=== PATIENT | female | born 1970 | race Two or more races ===

== ENCOUNTER 2024-09-27 21:36 | Emergency (ER) | payer SELFPAY ==
[~2024-09-27] VITALS: Ht 154.9 cm; Wt 90.0 kg
[2024-09-27 22:11] VITALS: BP 141/66; PULSE 67; RESP 18; TEMP 98.8; O2SAT 97
[2024-09-27 22:32] LABS: BASOPHILS % (AUTO) 0.8 % (0.0-2.0); EOSINOPHILS % (AUTO) 1.2 % (1.0-6.0); HEMATOCRIT 39.8 % (36-46); HEMOGLOBIN 13.2 g/dL (12.0-16.0); LYMPHOCYTES # (AUTO) 2.2 K/uL (1.0-4.8); LYMPHOCYTES % (AUTO) 41.5 % (22.0-44.0); MEAN CORPUSCULAR HEMOGLOBIN 30.3 pg (26.0-34.0); MEAN CORPUSCULAR HGB CONC 33.2 G/dL (31.0-37.0); MEAN CORPUSCULAR VOLUME 92 fL (80-100); MONOCYTES # (AUTO) 0.3 K/uL (0.1-1.0); MONOCYTES % (AUTO) 6.4 % (2.0-9.0); NEUTROPHILS # (AUTO) 2.7 K/uL (1.8-7.7); NEUTROPHILS % (AUTO) 50.1 % (40.0-70.0); PLATELET COUNT (AUTO) 201 K/uL (150-450); RED BLOOD CELL COUNT(AUTO) 4.35 MIL/uL (4.00-5.20); RED CELL DISTRIBUTION WIDTH 13.1 % (11.5-14.5); WHITE BLOOD COUNT (AUTO) 5.4 K/uL (4.5-11.0)
[2024-09-27 22:42] LABS: ANION GAP 8 mmol/L (8-16); CALCIUM, TOTAL 8.5 mg/dL (8.8-10.5); CARBON DIOXIDE 27 mmol/L (22-29); CHLORIDE 106 mmol/L (98-107); CREATININE 0.91 mg/dL (0.60-1.30); GLOMERULAR FILTR. RATE CALC > 60 mL/min (>60); GLUCOSE,RANDOM 133 mg/dL (70-110); POTASSIUM 3.7 mmol/L (3.5-5.1); SODIUM SERUM 141 mmol/L (136-145); UREA NITROGEN, BLOOD 21 mg/dL (7-18)
[2024-09-27 22:51] LABS: TROPONIN I-HIGH SENSITIVITY 14 ng/L (<51)
[2024-09-27 22:52] LABS: B-TYPE NATRIURETIC PEPTIDE 70 pg/mL (0-100)
[2024-09-28] MEDS: OMEPRAZOLE 20 MG CAPSULE PO ONE (01:39)
[2024-09-28] MEDS: HYDROCODONE/ACETAMINOPHEN 5-325 MG TABLET PO ONE (01:39)
[2024-09-28 01:56] LABS: TROPONIN I-HIGH SENSITIVITY 32 ng/L (<51)
[2024-09-28] MEDS ORDERED: ASPI-1227 PO (02:29)
[2024-09-28] MEDS: ASPIRIN 325 MG TABLET PO ONE (02:33)
[2024-09-28] MEDS ORDERED: METH-659 PO (20:36)
[2024-09-28] MEDS ORDERED: IBUP-1492 PO (20:36)
== END 2024-09-28 02:51 | disposition left against medical advice (07) ==
LOC: EMS 21:39
DX: R07.9 Chest pain, unspecified (principal); R11.10 Vomiting, unspecified; Z88.0 Allergy status to penicillin
CPT/HCPCS: 71045; 80048; 83880; 84484; 85025; 93005; 99285; 36415-L1; 36415-TC

== ENCOUNTER 2024-09-28 13:05 | Emergency (ER) | payer MEDICAID ==
[~2024-09-28] VITALS: Ht 170.2 cm; Wt 90.0 kg
[~2024-09-28 13:05] MED LIST: ASPI-1227 PO
[2024-09-28 13:10] VITALS: TEMP 98.2
[2024-09-28 15:56] LABS: BASOPHILS % (AUTO) 0.2 % (0.0-2.0); EOSINOPHILS % (AUTO) 0.2 % (1.0-6.0); HEMATOCRIT 41.3 % (36-46); HEMOGLOBIN 13.7 g/dL (12.0-16.0); LYMPHOCYTES # (AUTO) 1.5 K/uL (1.0-4.8); LYMPHOCYTES % (AUTO) 27.6 % (22.0-44.0); MEAN CORPUSCULAR HEMOGLOBIN 30.2 pg (26.0-34.0); MEAN CORPUSCULAR HGB CONC 33.2 G/dL (31.0-37.0); MEAN CORPUSCULAR VOLUME 91 fL (80-100); MONOCYTES # (AUTO) 0.3 K/uL (0.1-1.0); MONOCYTES % (AUTO) 6.4 % (2.0-9.0); NEUTROPHILS # (AUTO) 3.5 K/uL (1.8-7.7); NEUTROPHILS % (AUTO) 65.6 % (40.0-70.0); PLATELET COUNT (AUTO) 228 K/uL (150-450); RED BLOOD CELL COUNT(AUTO) 4.54 MIL/uL (4.00-5.20); RED CELL DISTRIBUTION WIDTH 13.7 % (11.5-14.5); WHITE BLOOD COUNT (AUTO) 5.3 K/uL (4.5-11.0)
[2024-09-28 16:20] LABS: ANION GAP 4 mmol/L (8-16); CALCIUM, TOTAL 8.9 mg/dL (8.8-10.5); CARBON DIOXIDE 30 mmol/L (22-29); CHLORIDE 106 mmol/L (98-107); CREATININE 0.82 mg/dL (0.60-1.30); GLOMERULAR FILTR. RATE CALC > 60 mL/min (>60); GLUCOSE,RANDOM 132 mg/dL (70-110); POTASSIUM 4.3 mmol/L (3.5-5.1); SODIUM SERUM 140 mmol/L (136-145); TROPONIN I-HIGH SENSITIVITY 11 ng/L (<51); UREA NITROGEN, BLOOD 16 mg/dL (7-18)
[2024-09-28] MEDS: METHOCARBAMOL 500 MG TABLET PO ONE (18:57)
[2024-09-28] MEDS: KETOROLAC TROMETHAMINE 60 MG/2 ML VIAL IM ONE (18:58)
[2024-09-28 20:09] VITALS: BP 137/82; PULSE 82; RESP 18; O2SAT 96
[2024-09-28] MEDS: LIDOCAINE 5% TRANSDERMAL PATCH TD ONE (20:19)
[2024-09-28] MEDS ORDERED: METH-659 PO (20:36)
[2024-09-28] MEDS ORDERED: IBUP-1492 PO (20:36)
== END 2024-09-28 21:33 | disposition home or self-care (01) ==
LOC: EMS 13:05
DX: M75.102 Unspecified rotator cuff tear or rupture of left shoulder, not specified as traumatic (principal); R07.89 Other chest pain; R20.2 Paresthesia of skin; M54.2 Cervicalgia; Z88.0 Allergy status to penicillin; Z79.82 Long term (current) use of aspirin
CPT/HCPCS: 99285; 71045; 80048; 84484; 85025; 36415; 93005; 96372; J1885